=== PATIENT | male | born 1980 | race Caucasian/White ===

== ENCOUNTER 2022-03-26 00:34 | Emergency (ER) | payer SELFPAY ==
[~2022-03-26] VITALS: Ht 179.1 cm; Wt 111.4 kg
[2022-03-26 01:10] LABS: BASOPHILS # (AUTO) 0.1 X10'3 (0-0.2); BASOPHILS % (AUTO) 0.7 % (0-1); EOSINOPHILS # (AUTO) 0.1 X10'3 (0-0.9); EOSINOPHILS % (AUTO) 0.7 % (0-6); HEMATOCRIT 42.8 % (42.0-52.0); HEMOGLOBIN 14.9 g/dl (14.0-17.9); LYMPHOCYTES # (AUTO) 3.6 X10'3 (1.1-4.8); LYMPHOCYTES % (AUTO) 44.1 % (21-51); MEAN CORPUSCULAR HEMOGLOBIN 31.9 PG (27.0-31.0); MEAN CORPUSCULAR HGB CONC 34.9 g/dL (33.0-36.5); MEAN CORPUSCULAR VOLUME 91.4 FL (78-98); MEAN PLATELET VOLUME 7.5 FL (7.4-10.4); MONOCYTES # (AUTO) 0.5 X10'3 (0-0.9); MONOCYTES % (AUTO) 6.5 % (2-12); NEUTROPHILS # (AUTO) 3.9 X10'3 (1.8-7.7); PLATELET COUNT 262 X10'3 (140-440); RED BLOOD COUNT 4.68 X10'6 (4.70-6.10); RED CELL DISTRIBUTION WIDTH 13.7 % (11.5-14.5); WHITE BLOOD COUNT 8.1 X10'3 (4.5-11.0)
[2022-03-26 01:29] LABS: ALANINE AMINOTRANSFERASE 40 U/L (12-78); ALBUMIN 4.1 G/DL (3.4-5.0); ALBUMIN/GLOBULIN RATIO 1.3 (1.1-1.5); ALKALINE PHOSPHATASE 62 IU/L (46-116); ASPARTATE AMINO TRANSFERASE 23 U/L (10-37); BILIRUBIN,TOTAL 0.6 MG/DL (0.1-1.0); BLOOD UREA NITROGEN 13 MG/DL (7-18); BUN/CREATININE RATIO 11.6 (5.4-32.0); CALCIUM 8.7 MG/DL (8.5-10.1); CHLORIDE 101 MMOL/L (99-107); CREATININE 1.12 MG/DL (0.60-1.10); GLUCOSE 160 MG/DL (70-104); TOTAL CARBON DIOXIDE 24.2 MMOL/L (24-32); TOTAL PROTEIN 7.3 G/DL (6.4-8.2); eGFR 72 ML/MIN
[2022-03-26 01:35] LABS: MAGNESIUM 1.8 MG/DL (1.5-2.4)
[2022-03-26 01:43] LABS: ANION GAP 12 (8-16)
[2022-03-26 01:46] LABS: SODIUM 137 MMOL/L (135-145)
[2022-03-26] MEDS ORDERED: magnesium 2GM in 50ml NS 50 ML IV SCH (02:35)
[2022-03-26] MEDS ORDERED: potassium Cl 20 mEq SR tablet PO ONE (02:35)
[2022-03-26 03:26] VITALS: BP 96/72
== END 2022-03-26 03:36 | disposition home or self-care (01) ==
LOC: ER 00:37
DX: R55 Syncope and collapse (principal); R61 Generalized hyperhidrosis; R07.89 Other chest pain
CPT/HCPCS: 36415; 71045; 80053; 83735; 83880; 84484; 85025; 93005; 96365; 99285; J3475